=== PATIENT | female | born 1985 | race Caucasian/White ===

== ENCOUNTER 2019-02-06 10:07 | Inpatient (IN) | payer MEDICAID ==
[~2019-02-06] VITALS: Ht 162.6 cm; Wt 55.3 kg
[2019-02-06 10:12] VITALS: Ht 162.6 cm; Wt 55.3 kg
--- NOTE | 2019-02-06 10:43 | NUR ---
PT BIB SELF C/C ABD PAIN STS STARTED LAST NIGHT DR RIVERA AT BEDSIDE TO [place]
--- NOTE | 2019-02-06 10:52 | NUR ---
PT STS THAT HER BROTHER IS GOING TO BE DRIVING HER HOME.
[2019-02-06 11:07] LABS: BASOPHIL % 0.5 % (0-2); PLATELET COUNT 399 x10^3mcL (130-400); RED CELL DISTRIBUTION WIDTH 18.9 % (11.5-14.5)
[2019-02-06 11:11] LABS: CALCIUM 8.2 mg/dL (8.5-10.1); CARBON DIOXIDE 26.1 mmol/L (21-32); CHLORIDE SERUM 103 mmol/L (98-107); CREATININE SERUM 0.6 mg/dL (0.6-1.0); GFR1 > 60 mL/min; GLUCOSE SERUM 107 mg/dL (74-106); SODIUM SERUM 140 mmol/L (136-145)
[2019-02-06 11:17] LABS: ALBUMIN 3.9 g/dL (3.4-5.0); ALKALINE PHOSPHATASE 98 U/L (46-116); ALT/SGPT 106 U/L (14-59); AST/SGOT 109 U/L (15-37); BILIRUBIN TOTAL 0.81 mg/dL (0.20-1.00); TOTAL PROTEIN, SERUM 8.1 g/dL (6.4-8.2)
[2019-02-06 11:54] LABS: LIPASE 2090 IU/L (73-393)
--- NOTE | 2019-02-06 12:00 | NUR ---
PLEASE ENTER FULL NAMES OF DOUBLE CUT SAWYER/RN Patient data collected by (DOUBLE CUT SAWYER):Giovanni NEVILLE Assessment reviewed and completed by (RN): Tammie MCMANUS
--- NOTE | 2019-02-06 12:38 | NUR ---
MEDICATED ORDERED THEN TAKEN TO RADIOLOGY FOR CT
--- NOTE | 2019-02-06 13:00 | NUR ---
BACK FROM CT
--- NOTE | 2019-02-06 13:09 | NUR ---
PT REPORTS THAT PAIN HAS IMPROVED TO A 7/10 S/P MORPHINE ADMINISTRATION. STATES "IT'S GONE DOWN A LOT." PT LAYING COMFORTABLY IN RIGHT LATERAL IN THE GURNEY ON HER PHONE. AWAKE AND ALERT, RESP E/U, NAD NOTED.
[2019-02-06 13:25] LABS: AMPHETAMINE QUAL UR NONE DETECTED (See below)
[2019-02-06 13:45] LABS: UA SPECIFIC GRAVITY 1.015 (1.005-1.035); microscopic required? YES; urine erythrocyte TRACE (NEGATIVE)
--- NOTE | 2019-02-06 13:55 | NUR ---
PT ADMIT TO [facility] ROOM 235B GAVE REPORT TO JARETT
--- NOTE | 2019-02-06 14:00 | NUR ---
RECIEVED PATIENT FROM RESOURCE NURSE. PATIENT CURRENTLY COMPLAINING OF ABD PAIN. MORPHINE GIVEN PRN PER EMAR. PATIENT STATES SHE HAS BEEN IN PAIN X 1 DAY. PAIN LOCATED IN UPPER LEFT PORTION OF ABD, PAIN RADIATES TO BACK PER PATIENT. IV TO LEFT WRIST INFUSING NS AT 150/HOUR. PATIENT AWAKE ALERT AND ORIENTED. CURRENT LIPASE LEVEL 2089.
[2019-02-06 14:18] LABS: MAGNESIUM 1.8 mg/dL (1.8-2.4); PHOSPHOROUS 3.9 mg/dL (2.5-4.9)
[2019-02-06 14:21] LABS: CHOLESTEROL/HDL RATIO 1.6
[2019-02-06 14:57] VITALS: BP 141/101
--- NOTE | 2019-02-06 15:05 | NUR ---
RECEIVED PT FROM ER, PT ADMIT FOR PANCREATITIS, PT IS A/O X4, VERBAL RESPONSIVE, LUNG SOUND CLEAR BILATERAL, NO COUGH, NO SOB,. PT DENY ANY CHEST PAIN OR DISCOMFORT, BOWEL SOUND PRESENT ALL 4 QUADRANTS, NO DISTENTION, C/O PAIN AT LEFT UPPER QUADRANT 6/10, ALSO C/O BLOODY STOOL. PEDAL PULSE PRESENT BOTH FEET, NO EDEMA, IV AT LEFT WRIST, NO LEAKING, NO INFILTRAITON. ALL ADLS ASSIST, ALL NEED MET, CALL LIGHT IN REACH, WILL CONTINUE TO MONITOR.
[2019-02-06 16:15] VITALS: BP 132/96
--- NOTE | 2019-02-06 19:21 | NUR ---
PATIENT CURRENTLY RESTING IN BED. CARE ENDORSED TO NOC NURSE. NS INFUSING TO LEFT WRIST AT 150/HOUR. PATIENT AWARE OF NPO STATUS. MORPHINE AND NORCO ADMINISTRED PRN FOR PAIN PER EMAR.
--- NOTE | 2019-02-06 19:30 | NUR ---
PT RECIEVED FROM DAY NURSE. PT RESTING IN BED AT THIS TIME. DENIES PAIN OR DISCOMFORT. A/O X 4, CALM AND COOPERATIVE AT THIS TIME. PT MED SURG, DENIES CP, NV, DIZZINESS, AND PALPATATIONS AT THIS TIME. PALPABLE PULSES, NO EDEMA NOTED AT THIS TIME. BREATHING E/U ON RA, DENIES SOB. ABD SOFT AND ROUND, PT DENIES PAIN TO PALPATION. IV TO L WRIST INTACT AND INFUSING. BED AT LOWEST POSITION. CALL LIGHT WITHIN REACH. WILL CONTINUE TO MONITOR.
[2019-02-06 20:30] VITALS: BP 144/94
--- NOTE | 2019-02-06 21:15 | NUR ---
PT COMPLAINING OF 7/10 PAIN TO ABD. MEDICATED WTIH PRN MORPHINE. WILL CONTINUE TO MONITOR.
--- NOTE | 2019-02-06 23:58 | NUR ---
PT COMPLAINING OF 5/10 PAIN IN ABD. MEDICATED WITH PRN MORPHINE. WILL CONTINUE TO MONITOR.
--- NOTE | 2019-02-07 02:23 | NUR ---
PT COMPLAINING OF 8/10 PAIN IN ABD, MEDICATED WITH PRN MORPHINE. WILL CONTINUE TO MONITOR.
[2019-02-07 05:50] VITALS: BP 122/86
--- NOTE | 2019-02-07 06:11 | NUR ---
PT RESTING IN BED AT THIS TIME, DENIES PAIN OR DISCOMFORT. BREATHING E/U ON RA AT THIS TIME. NO SIGNS OF ACUTE DISTRESS NOTED. ALL NEEDS AND CONCERNS ADDRESSD THIS SHIFT. BED AT LOWEST POSITION. CALL LIGHT WITHIN REACH. WILL CONTINUE TO MONITOR.
--- NOTE | 2019-02-07 07:00 | NUR ---
RECIEVED PATIENT FROM [facility] NURSE. PATIENT SLIGHTLY AWAKE FROM SLEEP, ACKNOWLEDGED UNDERSTANDING THAT I WILL BE TAKING OVER THE NURSE FOR DAY SHIFT. IV INFUSING NS AT 150/HOUR. BED IN THE LOW POSITION. SAFETY PRECAUTIONS IN PLACE. CALL LIGHT WITHIN REACH. WILL CONTINUE TO MONITOR.
--- NOTE | 2019-02-07 08:23 | NUR ---
AT 0800 PATIENT OBSERVED HAVING SEIZURE LASTING TWO MINUTES LONG. PATIENT TURNED TO SIDE. PATIENT FOAMING AT THE MOUTH. RESPIRATIONS OBSERVABLE. CODE CALLED PATIENT NOT ON TELEMETRY AT TIME OF SEIZURE. VITAL SIGNS: 98.6, GLUCOSE 117, BLOOD PRESSURE 115/72 (91), 112 HEART RATE. PRN ATIVAN ORDERED BY PROSIDING NURSE PRACTIONER. PATIENT STABILIZED AND MOVED CLOSER TO THE NURSES STATION. STAT CT ORDERED.
--- NOTE | 2019-02-07 08:30 | NUR ---
CARE OF PATIENT BEING TRANSFERRED TO TELEMETRY NURSE. ENDORSED CARE OF PATIENT TO NEW NURSE. NEW NURSE AWARE OF PATIENT'S RECENT SEIZURE.
--- NOTE | 2019-02-07 09:00 | NUR ---
[facility] PT RESTING IN BED, IN NO ACUTE DISTRESS, RESP E/U, RA, NO SOB/COUGH, LUNGS CTAB, TELE #6, NSR, HR-89 AT THIS TIME, DENIED CP/PALPITATION, DENIED FARIA/DIZZINESS, PERRLA, VERBAL, ABLE TO MAKE NEEDS KNOWN, AXOX3, PT REPROTED UNABLE TO RECALL SHORTTERM MEMORY OF LAST COUPLE DAYS, NO FACIAL DROOP/SLURRED SPEECH, ABD SEMI-SOLF AND MILD TENDER TO TOUCH, PT REPORTED ABD DISCOMFORT, EQUAL [facility] COOK, SKIN C/D/W, IV PATENT AND INFUSING WELL, DRESSING CDI, SEIZURE PRECAUTION, FALLRISK, PALP PUSLES, CAP REFILL < 2S, ALL NEEDS ADDRESSED, SAFETY PROTOCOL FOLLOWED, CONTINUE TO MONITOR
--- NOTE | 2019-02-07 09:05 | NUR ---
ASSISTED PT TO CT HEAD SCAN W/OUT CONTRAST, PT IN NO ACUTE DISTRESS, NO CURRENT ACTIVE SEIZURE NOTED AT THIS TIME, PT BACK TO FLOOR, RESTING IN BED, CONTINUE TO MONITOR
--- NOTE | 2019-02-07 09:28 | NUR ---
TELE NEURO CONSULT AT BEDSIDE, NEUROLOGIST DR LAST, QUESTION ASKED AND ANSWERED, PT MADE AWARE OF ALL NEW F/U ORDER, NO FURTHER CONCERN NEEDED AT THIS TIME, BLOOD DRAW AT BEDSIDE, PT TOLERATED PROCEDURE WELL, MANAGER RESTAURANT JAMAL MADE AWARE OF ALL F/U, PER DR LAST, PT WILL HAVE LABWORK MONITOR FOR CA LEVEL, EEG, AND LUMBAR PUNCTURE, [facility] NURSE NANCY MADE AWARE
--- NOTE | 2019-02-07 09:56 | NUR ---
PT REPORTED NAUSEA, MEDICATED PT PER PRN ORDER VIA EMAR, TOLERATED WELL, NO ASE NOTED AT THIS TIME, EDUCATED PT R/T MED, ASE AND MONITOR, VERBALLY UNDERSTANING, CONTINUE TO MONITOR
[2019-02-07 10:39] LABS: CALCIUM 8.1 mg/dL (8.5-10.1); CARBON DIOXIDE 25.8 mmol/L (21-32); CHLORIDE SERUM 102 mmol/L (98-107); CREATININE SERUM 0.5 mg/dL (0.6-1.0); GFR1 > 60 mL/min; GLUCOSE SERUM 107 mg/dL (74-106); POTASSIUM SERUM 3.1 mmol/L (3.5-5.1); SODIUM SERUM 138 mmol/L (136-145)
[2019-02-07 10:48] LABS: LIPASE 381 IU/L (73-393)
[2019-02-07 10:54] LABS: BASOPHIL % 0.3 % (0-2); PLATELET COUNT 307 x10^3mcL (130-400)
[2019-02-07 11:07] LABS: RED CELL DISTRIBUTION WIDTH 19.6 % (11.5-14.5)
--- NOTE | 2019-02-07 12:37 | NUR ---
PT SIGNED INFORMED CONSENT FOR LUMBAR PUNCTURE, NO FURTHER CONCERN NEEDED AT THIS TIME, PT RESTING IN BED IN NO ACUTE DISTRESS, CHARGE NURSE MADE AWARE
[2019-02-07 13:05] VITALS: BP 122/86
--- NOTE | 2019-02-07 13:23 | NUR ---
PT REPORTED PAIN, 08/26, ABD, DULL, LOCAL, MEDICATED PER PRN ORDER VIA EMAR, TOLERATED WELL AT THIS TIME, NO ASE NOTED, EDUCATED PT R/T MED, ASE AND MONITOR, VERBALLY UNDERSTANDING, ALL NEEDS ADDRESSED AT THIS TIME, SAFETY PROTOCOL FOLLOWED, CONTINUE TO MONITOR
[2019-02-07 15:39] VITALS: BP 112/77
--- NOTE | 2019-02-07 16:20 | NUR ---
PER CHARGE NURSE NANCY AND COREMAKER JAMAL FREITAS, PT WILLHAVE LUMBAR PUNCTURE TOMORROW INSTEAD OF TODAY, PT RESTING IN BED IN NO ACUTE DISTRESS, PT MADE AWARE, CONTINUE TO MONITOR
--- NOTE | 2019-02-07 17:12 | NUR ---
PROGRAM PROJECT MANAGER JAMAL FREITAS PAGED AND MADE AWARE OF URINE CULTURE AND PT CURRENT BLOOD SUGAR, NEW ORDER OBTAINED, PT AND FAMILY MADE AWARE, CHARGE NURSE NANCY MADE AWARE, ALL NEEDS ADDRESSED, PT RESTING IN BED IN NO ACUTE DISTRESS
--- NOTE | 2019-02-07 17:57 | NUR ---
PT RESTING IN BED, TOLERATED DINNDER WELL, VERBAL, IN NO ACUTE DISTRESS, DENIED PAIN/DISCOMFORT, NO FACIAL DROOP/SLURRED SPEECH, DENIED N/V, DENIED FARIA/DIZZINESS, SEIZURE PRECAUTION, RESP E/U, RA, TELE #6, IV PATENT AND INFUSING WELL, DRESSING CDI, ALL NEEDS ADDRESSED, SAFETY PROTOCOL MAINTAINED, WILL ENDORSE TO ONCOMSERGIO STUART
[2019-02-07 19:11] VITALS: BP 128/95
--- NOTE | 2019-02-07 19:49 | NUR ---
PT A/A/O X4. DENIES DIZZINESS AND C/O HEADACHE AND RIB PAIN. GAVE PT NORCO PO. PT TOLERATED IT WELL. BREARTH SOUNDS CLEAR. BREATHING EVEN AND UNLABORED ON ROOM AIR. DENIES CHEST PAIN AND PRESSURE. BOWEL SOUNDS ACTIVE. NO C/O N/V AND ABD PAIN. IV INTACT ON THE LEFT WRIST INFUSING WITH NS AT 150 ML/HR. MADE PT COMFORTABLE. PLACED CALL LIGHT WITH IN REACH. WILL CONTINUE TO MONITOR.
[2019-02-07 21:51] VITALS: BP 127/89
--- NOTE | 2019-02-07 23:19 | NUR ---
PT C/O HEADACHE AND PAIN ON LATASHA RIBS. GAVE PT MORPHINE IVP. PT TOLERATED IT WELL. WILL CONTINUE TO MONITOR.
[2019-02-08 06:00] VITALS: BP 124/84
--- NOTE | 2019-02-08 07:10 | NUR ---
PT QUIET AND RESTING. NO EPISODE OF SEIZURE THUS FAR. IV INTACT AND INFUSING ORDERED. MADE PT COMFORTABLE. WILL ENDORSE TO THE AM NURSE ACCORDINGLY.
--- NOTE | 2019-02-08 07:35 | NUR ---
RECEIVED PT RESTING IN BED. SLEEPING BUT AROUSABLE. SEIZURE PRECAUTIONS. RESP EVEN AND UNLABORED ON RA. NO PAIN NOTED. IVF INFUSING, NO REDNESS OR SWELLING. BED IN LOW POSITION, CALL LIGHT WITHIN REACH. WILL CONTINUE TO MONITOR.
--- NOTE | 2019-02-08 08:43 | NUR ---
RECEIVED ORDER FOR LUMBAR PUNCTURE. PER DR WARREN WOULD NEED INDICATION FOR USE OF FLUOROSCOPY. UPON REVIEW OF RECORD, NEUROLOGIST ON THE CASE DOCUMENTED THAT LP NOT RECOMMENDED UNLESS PATIENT DEVELOPS FEVER. HIGHEST TEMP RECORDED DURING STAY IS 98.6. SPOKE WITH PATIENT'S NURSE WHO WILL CHECK WITH ORDERING PHYSICIAN REGARDING NEED FOR LP.
[2019-02-08 09:10] VITALS: BP 135/88
[2019-02-08 12:32] VITALS: BP 142/73
--- NOTE | 2019-02-08 13:36 | NUR ---
CALL PLACED FOR TELE NEURO CONSULT. [place] COMPUTER SET UP IN ROOM. WILL CONTINUE TO MONITOR.
--- NOTE | 2019-02-08 14:58 | NUR ---
SPOKE WITH DR. STILES OVER THE PHONE REGARDING PT'S TELE NEURO RE-EVALUATION REQUEST. PER DR. STILES, NEED EEG AND MRI DONE BEFORE RE-EVALUATION CAN BE PERFORMED. JEREMY FOLDING MACHINE FEEDER INFORMED. NO NEW ORDERS. WILL CONTINUE TO MONITORS.
--- NOTE | 2019-02-08 17:10 | NUR ---
PT WANTS TO LEAVE AMA. JEREMY CATERING STAFF MEMBER SPOKE WITH PT OVER THE PHONE REGARDING RISKS OF LEAVING AMA. PT INSISTS ON LEAVING AMA. AMA FORM SIGNED AND PLACED IN CHART. PT OFFERED DOSE OF SCHEDULED [employer], PT STATED SHE WANTS TO LEAVE. IV DC'D WITH CATHETER INTACT. TELE REMOVED. BELONGINGS WITH PT. VIJAY VIVAS ACCOMPANIED PT TO LOBBY.
--- NOTE | 2019-02-08 17:27 | NUR ---
Discount pharmacy card and list to low cost medical clinics given to patient by Monserrat Palencia.
== END 2019-02-08 17:42 | disposition left against medical advice (07) | DRG 282 ==
LOC: ED 10:07 → MU 13:20 → DU 13:20 → MU 14:23 → DU 02-07 08:28
PROVIDERS: Emergency Medicine; ADMIT Family Medicine
DX: K85.90 Acute pancreatitis without necrosis or infection, unspecified (principal); R56.9 Unspecified convulsions
CPT/HCPCS: 82962; G0378; J0696; J2060; J2270; J2405